=== PATIENT | female | born 1935 | race Hispanic/Latino ===

== ENCOUNTER 2018-09-30 11:40 | Emergency (ER) | payer OTHER ==
--- OUTSIDE RECORDS SUMMARY | 2018-09-30 11:45 | XMS REPORT | Clinical Summary ---
:1935 Author Organization [facility] Address [address] [place] [address] Care Team Providers Name Role Phone Unavailable Primary Care Provider Unavailable Allergies Not on File Medications Not on file Active Problems Not on file Encounters Date Type Specialty Care Team Description 09/12/2018 Outside Orders Central Scheduling Link, Osiel Renal mass, left MD Apollo (Primary Dx) after 09/29/2017 Social History Tobacco Use Types Packs/Day Years Used Date Never Assessed Sex Assigned at Date Recorded Not on file Job Start Date Occupation Industry Not on file Not on file Not on file Travel History Travel Start Travel End No recent travel history available. Last Filed Vital Signs Not on file Plan of Treatment Not on file Results Not on fileafter 09/29/2017 Insurance Payer Benefit Plan / Subscriber ID Type Phone Address Group [employer]ET[employer] - MEDICARE AETNA MEDICARE HMO xxxxxxxx [phone] [address] [place] [id number]
[2018-09-30] MEDS ORDERED: ACETAMINOPHEN 325 MG TABLET ONE (12:21)
--- NOTE | 2018-09-30 13:10 | RAD REPORT ---
EXAM DESCRIPTION: Shoulder Right 2 View - 09/30/2018 12:58 pm CLINICAL HISTORY: Fall, arm and shoulder pain COMPARISON: July 2018 TECHNIQUE: Internal and external rotation views of the right shoulder were obtained. FINDINGS: There is no fracture or dislocation. AC joint degenerative changes are present. A partial ly mineralized thickened capsule along the superior margin. Acromiohumeral joint space is narrowed wh ich can be indirect evidence of chronic rotator cuff tear. No abnormal soft tissue calcification. No new scapula finding. No new rib or parenchymal finding of the upper chest. IMPRESSION: No fracture, dislocation or acute right shoulder finding. Narrowed acromiohumeral joint space can be indirect evidence for chronic rotator cuff tear.
--- NOTE | 2018-09-30 13:11 | RAD REPORT ---
EXAM DESCRIPTION: RAD - Humerus Right - 09/30/2018 12:53 pm CLINICAL HISTORY: Fall, right arm pain COMPARISON: Right shoulder same date FINDINGS: No fracture is identified. There is no dislocation or periosteal reaction noted. AC joint degenerative changes are present separately detailed and right shoulder examination. No new scapula f inding. Elbow joint as imaged is unremarkable. No suspicious soft tissue finding. IMPRESSION: No fracture, dislocation or acute right humerus finding.
--- NOTE | 2018-09-30 13:26 | EDPHYS ---
Physician Documentation [facility] Name: Twyla Gray Age: 83 yrs Sex: Female : 1935 Arrival Date: 09/30/2018 Time: 11:41 Bed 19 Private MD: Jonnie Grover ED Physician Isaac Diez HPI: 09/30 12:04 This 83 yrs old Female presents to ER via Ambulatory with complaints of Fall jmm Injury. 12:04 Details of fall: The patient fell from an upright position. Onset: The symptoms/episode jmm began/occurred acutely. This is an 83 year old female with a history of breast cancer, htn, that presents to the ED with complaints of right arm pain after slipping off her walker. patient denies head injury, denies neck pain, denies chest pain, denies shortness of breath. . Historical: - Allergies: 11:51 Sulfa (Sulfonamide Antibiotics); hj - Home Meds: 11:51 omeprazole 40 mg Oral cpDR 1 cap once daily [Active]; alprazolam 0.5 mg Oral Tb24 1 tab hj once daily [Active]; ramipril 2.5 mg Oral cap 1 cap once daily [Active]; aspirin 81 mg Oral chew 1 tab once daily [Active]; meclizine 25 mg Oral chew 1 tab as needed [Active]; alendronate oral oral once wkly [Active]; - PMHx: 11:51 breast cancer; Hypertension; hj - PSHx: 11:51 Mastectomy, Left; hj - Immunization history:: Adult Immunizations up to date. - Social history:: Smoking status: Patient/guardian denies using tobacco, Patient/guardian denies using alcohol. - Ebola Screening: : Patient negative for fever greater than or equal to 101.5 degrees Fahrenheit, and additional compatible Ebola Virus Disease symptoms Patient denies exposure to infectious person Patient denies travel to an Ebola-affected area in the 21 days before illness onset. ROS: 12:04 Constitutional: Negative for fever, chills, and weight loss, Cardiovascular: Negative jmm for chest pain, palpitations, and edema, Respiratory: Negative for shortness of breath, cough, wheezing, and pleuritic chest pain. 12:04 MS/extremity: Positive for pain. 12:04 All other systems are negative. Exam: 12:04 Constitutional: This is a well developed, well nourished patient who is awake, alert, jmm and in no acute distress. Head/Face: atraumatic. Eyes: EOMI, no conjunctival erythema appreciated ENT: Moist Mucus Membranes Neck: Trachea midline, Supple Chest/axilla: Normal chest wall appearance and motion. Cardiovascular: Regular rate and rhythm. No edema appreciated Respiratory: Normal respirations, no respiratory distress appreciated Abdomen/GI: Non distended, soft Back: Normal ROM Skin: General appearance color normal 12:04 Musculoskeletal/extremity: right mid humeral pain on palpation, compartments are soft, full radial pulse, full feeder associate strength, mild right posterior shoulder pain on palpation, pain is elicited on abduction. NVI. 12:04 Skin: Appearance: Color: normal in color. 12:04 Neuro: Orientation: is normal, Mentation: is normal, Memory: is normal. 12:04 Psych: Behavior/mood is pleasant, cooperative. Vital Signs: 11:52 BP 155 / 81; Pulse 71; Resp 18; Temp 97.4; Pulse Ox 95% on R/A; Weight 64.86 kg; Height 5 ft. 1 in. (154.94 cm); Pain 4/10; 11:52 Body Mass Index 27.02 (64.86 kg, 154.94 cm) MDM: 12:04 Patient medically screened. [facility] 13:25 Data reviewed: vital signs, nurses notes. Counseling: I had a detailed discussion with [facility] the patient and/or guardian regarding: the historical points, exam findings, and any diagnostic results supporting the discharge/admit diagnosis, radiology results, the need for outpatient follow up, to return to the emergency department if symptoms worsen or persist or if there are any questions or concerns that arise at home. 13:25 ED course: Patient is given follow up with orthopedics. Symptoms appear to be due to [facility] soft tissue injury. . 09/30 12:07 Order name: Shoulder Right (2 View) XRAY; Complete Time: 13:16 [facility] 09/30 12:07 Order name: Humerus Right XRAY; Complete Time: 13:16 [facility] 09/30 13:16 Order name: Sling; Complete Time: 13:36 [facility] Administered Medications: 12:12 Drug: Tylenol 650 mg Route: PO; em 13:22 Follow up: Response: No adverse reaction; Pain is decreased em Disposition: 14:27 Co-signature as Attending Physician, Isaac Diez MD I agree with the assessment and kdr plan of care. Disposition: 09/30/18 13:25 Discharged to Home. Impression: Sprain of shoulder joint. - Condition is Stable. - Discharge Instructions: Shoulder Sprain. - Medication Reconciliation Form, Thank You Letter, Antibiotic Education, Prescription Opioid Use form. - Follow up: Milan Nicholas MD; When: 2 - 3 days; Reason: Recheck today's complaints, Continuance of care, Re-evaluation by your physician. Signatures: Dispatcher [employer] EDMS Isaac Diez MD MD kdr Mickail, Joel, PA PA samantham Don Warner, UTILITY AGENT UTILITY AGENT em David Rizo RN RN hj Corrections: (The following items were deleted from the chart) 13:43 13:25 09/30/2018 13:25 Discharged to Home. Impression: Sprain of shoulder joint. em Condition is Stable. Forms are Medication Reconciliation Form, Thank You Letter, Antibiotic Education, Prescription Opioid Use. Follow up: Milan Nicholas; When: 2 - 3 days; Reason: Recheck today's complaints, Continuance of care, Re-evaluation by your physician. richard
--- NOTE | 2018-09-30 13:26 | ER ---
[facility]'s [facility] Name: Twyla Gray Age: 83 yrs Sex: Female : 1935 Arrival Date: 09/30/2018 Time: 11:41 Bed 19 Private MD: Jonnie Grover Diagnosis: Sprain of shoulder joint Presentation: 09/30 11:48 Presenting complaint: Patient states: i fell from a standing position using a walker hj and hurt my arms; denies hitting head or LOC;. Transition of care: patient was not received from another setting of care. Onset of symptoms was September 30, 2018. Risk Assessment: Do you want to hurt yourself or someone else? Patient reports no desire to harm self or others. Initial Sepsis Screen: Does the patient meet any 2 criteria? No. Patient's initial sepsis screen is negative. Does the patient have a suspected source of infection? No. Patient's initial sepsis screen is negative. Care prior to arrival: None. 11:48 Method Of Arrival: Ambulatory 11:48 Acuity: ASHLYN 4 hj Triage Assessment: 11:53 General: Appears in no apparent distress. uncomfortable, Behavior is calm, cooperative, hj appropriate for age. Pain: Complains of pain in arms. Historical: - Allergies: 11:51 Sulfa (Sulfonamide Antibiotics); hj - Home Meds: 11:51 omeprazole 40 mg Oral cpDR 1 cap once daily [Active]; alprazolam 0.5 mg Oral Tb24 1 tab hj once daily [Active]; ramipril 2.5 mg Oral cap 1 cap once daily [Active]; aspirin 81 mg Oral chew 1 tab once daily [Active]; meclizine 25 mg Oral chew 1 tab as needed [Active]; alendronate oral oral once wkly [Active]; - PMHx: 11:51 breast cancer; Hypertension; hj - PSHx: 11:51 Mastectomy, Left; hj - Immunization history:: Adult Immunizations up to date. - Social history:: Smoking status: Patient/guardian denies using tobacco, Patient/guardian denies using alcohol. - Ebola Screening: : Patient negative for fever greater than or equal to 101.5 degrees Fahrenheit, and additional compatible Ebola Virus Disease symptoms Patient denies exposure to infectious person Patient denies travel to an Ebola-affected area in the 21 days before illness onset. Screenin:52 Abuse screen: Denies threats or abuse. Denies injuries from another. Nutritional hj screening: No deficits noted. Tuberculosis screening: No symptoms or risk factors identified. Fall Risk None identified. Assessment: 12:10 General: Appears in no apparent distress. comfortable, Behavior is calm, cooperative. em Pain: Complains of pain in anterior aspect of right shoulder Pain currently is 4 out of 10 on a pain scale. Neuro: Level of Consciousness is awake, alert, obeys commands, Oriented to person, place, time, situation. Cardiovascular: Capillary refill < 3 seconds Patient's skin is warm and dry. Respiratory: Airway is patent Respiratory effort is even, unlabored, Respiratory pattern is regular, symmetrical. GI: Abdomen is flat. Derm: Skin is intact, is healthy with good turgor, Skin is pink, warm \T\ dry. Musculoskeletal: Circulation, motion, and sensation intact. Capillary refill < 3 seconds, Range of motion: limited in right shoulder Swelling absent. 12:20 Reassessment: I agree with previous assessment. hb 13:00 Reassessment: Patient appears in no apparent distress at this time. Patient and/or em family updated on plan of care and expected duration. Pain level reassessed. Patient is alert, oriented x 3, equal unlabored respirations, skin warm/dry/pink. Vital Signs: 11:52 BP 155 / 81; Pulse 71; Resp 18; Temp 97.4; Pulse Ox 95% on R/A; Weight 64.86 kg; Height hj 5 ft. 1 in. (154.94 cm); Pain 4/10; 11:52 Body Mass Index 27.02 (64.86 kg, 154.94 cm) ED Course: 11:41 Patient arrived in ED. rg4 11:42 Jonnie Grover MD is Private Physician. rg4 11:50 Triage completed. hj 11:53 Arm band placed on right wrist. hj 11:53 Patient has correct armband on for positive identification. Bed in low position. Call light in reach. Side rails up X 1. Adult w/ patient. 11:55 Don Warner LVN is Primary Nurse. em 11:59 Bharat Salas PA is PHCP. [facility] 11:59 Isaac Diez MD is Attending Physician. jmm 12:45 X-ray completed. Portable x-ray completed in exam room. Patient tolerated procedure jb2 well. 12:48 Shoulder Right (2 View) XRAY In Process Unspecified. EDMS 12:48 Humerus Right XRAY In Process Unspecified. EDMS 13:25 Milan Nicholas MD is Referral Physician. jmm 13:42 Thermoregulation: warm blanket given to patient. em 13:42 No provider procedures requiring assistance completed. Patient did not have IV access em during this emergency room visit. Administered Medications: 12:12 Drug: Tylenol 650 mg Route: PO; em 13:22 Follow up: Response: No adverse reaction; Pain is decreased em Outcome: 13:25 Discharge ordered by . jmm 13:42 Discharged to home via wheelchair, with family. em 13:42 Condition: good 13:42 Discharge instructions given to patient, family, Instructed on discharge instructions, follow up and referral plans. Demonstrated understanding of instructions, follow-up care. 13:43 Patient left the ED. em Signatures: Dispatcher [employer] EDNY Bharat Salas PA PA Trip Gallardo jb2 Don Warner, OPHTHALMOLOGIST OPHTHALMOLOGIST em David Rizo, RN RN Yuliet Davis, HUSSAIN RN Shawna Estrella rg4
== END 2018-09-30 13:43 | disposition home or self-care (01) ==
LOC: ER 11:40
DX: S43.401A Unspecified sprain of right shoulder joint, initial encounter (principal); W01.0XXA Fall on same level from slipping, tripping and stumbling without subsequent striking against object, initial encounter; C50.919 Malignant neoplasm of unspecified site of unspecified female breast; I10 Essential (primary) hypertension; Z88.2 Allergy status to sulfonamides; Z90.12 Acquired absence of left breast and nipple; Z79.82 Long term (current) use of aspirin
CPT/HCPCS: 99283

== ENCOUNTER 2022-08-07 09:15 | Emergency (ER) | payer OTHER ==
--- OUTSIDE RECORDS SUMMARY | 2022-08-07 09:35 | XMS REPORT | Continuity of Care Document ---
:1935 Author Organization [facility] t Address 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 shoulder, Medical initial Center encounter Allergies, Adverse Reactions, Alerts This patient has no known allergies or adverse reactions. Social History Social Habit Start Date Stop Date Quantity Comments Source History of Tobacco [facility] - Use [facility] Sex Assigned At [birth year] [facility] 00:00:00 00:00:00 [facility] Center Smoking Status Start Date Stop Date Source Never Smoker [facility] Medications Ordered Filled Start Stop Current Ordering Indication Dosage Frequency Signature Comments Components Source Medication Medication Date Date Medication? Clinician (SIG) Name Name Pantoprazol Pantoprazol No Pantoprazo e Sodium e Sodium le Sodium Omeprazole Omeprazole No Omeprazole 40 MG 40 MG 40 MG Ramipril Ramipril No Ramipril 2.5 MG 2.5 MG 2.5 MG Aspirin 81 Aspirin 81 No 1{table QD Aspirin 81 MG MG t} MG Meclizine Meclizine No Meclizine HCl 25 MG HCl 25 MG HCl 25 MG Dorzolamide Dorzolamide No Dorzolamid HCl-Timolol HCl-Timolol e Mal Mal HCl-Timolo 22.3-6.8 22.3-6.8 l Mal MG/ML MG/ML 22.3-6.8 MG/ML ALPRAZolam ALPRAZolam No ALPRAZolam 0.25 MG 0.25 MG 0.25 MG Alphagan P Alphagan P No Alphagan P 0.1 % 0.1 % 0.1 % Lumigan Lumigan No Lumigan 0.01 % 0.01 % 0.01 % ALPRAZolam ALPRAZolam No ALPRAZolam 0.25 MG 0.25 MG 0.25 MG Meclizine Meclizine No Meclizine HCl 25 MG HCl 25 MG HCl 25 MG Ramipril Ramipril No Ramipril 2.5 MG 2.5 MG 2.5 MG Lumigan Lumigan No Lumigan 0.01 % 0.01 % 0.01 % Alphagan P Alphagan P No Alphagan P 0.1 % 0.1 % 0.1 % Aspirin 81 Aspirin 81 No 1{table QD Aspirin 81 MG MG t} MG Omeprazole Omeprazole No Omeprazole 40 MG 40 MG 40 MG Pantoprazol Pantoprazol No Pantoprazo e Sodium e Sodium le Sodium Dorzolamide Dorzolamide No Dorzolamid HCl-Timolol HCl-Timolol e Mal Mal HCl-Timolo 22.3-6.8 22.3-6.8 l Mal MG/ML MG/ML 22.3-6.8 MG/ML ALPRAZolam ALPRAZolam No ALPRAZolam 0.25 MG 0.25 MG 0.25 MG Meclizine Meclizine No Meclizine HCl 25 MG HCl 25 MG HCl 25 MG Ramipril Ramipril No Ramipril 2.5 MG 2.5 MG 2.5 MG Lumigan Lumigan No Lumigan 0.01 % 0.01 % 0.01 % Alphagan P Alphagan P No Alphagan P 0.1 % 0.1 % 0.1 % Aspirin 81 Aspirin 81 No 1{table QD Aspirin 81 MG MG t} MG Omeprazole Omeprazole No Omeprazole 40 MG 40 MG 40 MG Pantoprazol Pantoprazol No Pantoprazo e Sodium e Sodium le Sodium Dorzolamide Dorzolamide No Dorzolamid HCl-Timolol HCl-Timolol e Mal Mal HCl-Timolo 22.3-6.8 22.3-6.8 l Mal MG/ML MG/ML 22.3-6.8 MG/ML ALPRAZolam ALPRAZolam No ALPRAZolam 0.25 MG 0.25 MG 0.25 MG Meclizine Meclizine No Meclizine HCl 25 MG HCl 25 MG HCl 25 MG Ramipril Ramipril No Ramipril 2.5 MG 2.5 MG 2.5 MG Lumigan Lumigan No Lumigan 0.01 % 0.01 % 0.01 % Alphagan P Alphagan P No Alphagan P 0.1 % 0.1 % 0.1 % Aspirin 81 Aspirin 81 No 1{table QD Aspirin 81 MG MG t} MG Omeprazole Omeprazole No Omeprazole 40 MG 40 MG 40 MG Pantoprazol Pantoprazol No Pantoprazo e Sodium e Sodium le Sodium Dorzolamide Dorzolamide No Dorzolamid HCl-Timolol HCl-Timolol e Mal Mal HCl-Timolo 22.3-6.8 22.3-6.8 l Mal MG/ML MG/ML 22.3-6.8 MG/ML Vital Signs Vital Name Observation Time Observation Value Comments Source height 2022-05-05 09:30:00 59.5 [in_i] [facility] weight 2022-05-05 09:30:00 153 [lb_av] [facility] temperature 2022-05-05 09:30:00 97.0 [degF] [facility] bmi 2022-05-05 09:30:00 30.38 kg/m2 [facility] blood pressure 2022-05-05 09:30:00 126 mm[Hg] [facility] - systolic [facility] blood pressure 2022-05-05 09:30:00 78 mm[Hg] [facility] - diastolic [facility] height 2021-07-03 09:00:00 59.5 [in_i] [facility] weight 2021-07-03 09:00:00 153 [lb_av] [facility] bmi 2021-07-03 09:00:00 30.38 kg/m2 [facility] - [facility] blood pressure 2021-07-03 09:00:00 132 mm[Hg] [facility] - systolic [facility] blood pressure 2021-07-03 09:00:00 84 mm[Hg] Common [facility] - diastolic [facility] Procedures This patient has no known procedures. Encounters Start End Encounter Admission Attending Care Care Encounter Source Date/Time Date/Time Type Type Clinicians Facility Department ID 2022-04-21 Outpatient [facility], STLMLC STLMLC [id number] Common 09:23:[address] [facility] 2022-01-13 Outpatient [facility], STLMLC STLMLC [id number] Common 09:42:[address] [facility] 2021-07-23 Outpatient [facility], STLMLC STLMLC [id number] Common 14:30:[address] [facility] 2021-07-23 Outpatient [facility], STLMLC STLMLC [id number] Common 14:18:[id number] [facility] 2022-07-09 2022-07-09 (TEL) STLMLC STLMLC [id number] Co [facility]mon 00:00:00 00:00:00 [facility] 2022-07-02 2022-07-02 (TEL) STLMLC STLMLC [id number] Co mmon 00:00:00 00:00:00 [facility] 2022-05-05 2022-05-05 OFFICE STLMLC STLMLC [id number] Co mmon 00:00:00 00:00:00 VISIT [facility] PT - [address] 2021-07-03 2021-07-03 OFFICE [facility] [id number] Co mmon 00:00:00 00:00:00 VISIT Danis BROWN PT - [address] Results This patient has no known results.
[2022-08-07 10:30] LABS: Absolute Lymphocytes (CBC) 0.8 K/uL (0.7-4.9); Hematocrit 32.1 % (36.0-45.0); Lymphocytes % 20.1 % (15.3-44.8); MCV 90.6 fL (80-100); MPV 8.5 fL (7.6-11.3); RBC Red Blood Cell Count 3.54 M/uL (3.86-4.86)
[2022-08-07 10:47] LABS: Bilirubin Total 0.4 mg/dL (0.2-1.0); Magnesium 2.1 mg/dL (1.6-2.4); Potassium 3.6 mmol/L (3.5-5.1); Protein, Total 7.6 g/dL (6.4-8.2)
--- NOTE | 2022-08-07 11:00 | EDPHYS ---
Physician Documentation [facility] Name: Twyla Gray Age: 87 yrs Sex: Female : 1935 Arrival Date: 08/07/2022 Time: 09:16 Bed 20 Private MD: ED Physician Mike Wyatt HPI: 08/07 09:59 This 87 yrs old Female presents to ER via Ambulatory with complaints of rt Numbness Of Arm, Numbless Of Leg. 09:59 Patient presents to the ED with a tingling sensation for the past several weeks to rt month. Patient has been seen by her physician, outpatient imaging has been ordered. She denies any focal weakness. The tingling is mostly localized to the left superior trapezius region, however, she reports that she has had previously tingling involving the arm. The patient reports tingling behind both of her knees, not unilateral. Reports feeling somewhat weak generally but denies any weakness to the arms or legs. The patient's daughter states that she noticed no facial droop. The daughter states that she is concerned that the patient's symptoms may be caused from anxiety. Denies other acute complaints at this time. Symptoms are moderate in severity, no other aggravating or alleviating factors.. Historical: - Allergies: 09:33 Sulfa (Sulfonamide Antibiotics); iw - PMHx: 09:33 breast cancer; Hypertension; iw - PSHx: 09:33 hysterectomy; Cholecystectomy; left mastectomy; iw - Immunization history:: Adult Immunizations unknown. - Social history:: Smoking status: Patient denies any tobacco usage or history of. ROS: 10:00 Constitutional: Negative for fever, chills, and weight loss, Cardiovascular: Negative rt for chest pain, palpitations, and edema, Respiratory: Negative for shortness of breath, cough, wheezing, and pleuritic chest pain, Abdomen/GI: Negative for abdominal pain, nausea, vomiting, diarrhea, and constipation, Back: Negative for injury and pain, MS/Extremity: Negative for injury and deformity, Skin: Negative for injury, rash, and discoloration. 10:00 Neuro: Positive for tingling, Negative for weakness. Exam: 10:00 Constitutional: This is a well developed, well nourished patient who is awake, alert, rt and in no acute distress. Head/Face: Normocephalic, atraumatic. Chest/axilla: Normal chest wall appearance and motion. Nontender with no deformity. No lesions are appreciated. Cardiovascular: Regular rate and rhythm with a normal S1 and S2. No gallops, murmurs, or rubs. Normal PMI, no JVD. No pulse deficits. Respiratory: Lungs have equal breath sounds bilaterally, clear to auscultation and percussion. No rales, rhonchi or wheezes noted. No increased work of breathing, no retractions or nasal flaring. Abdomen/GI: Soft, non-tender, with normal bowel sounds. No distension or tympany. No guarding or rebound. No evidence of tenderness throughout. Skin: Warm, dry with normal turgor. Normal color with no rashes, no lesions, and no evidence of cellulitis. MS/ Extremity: Pulses equal, no cyanosis. Neurovascular intact. Full, normal range of motion. 10:00 Neuro: Speech normal, no facial droop, cranial nerves II through XII intact, strength and sensation intact in upper and lower extremities. No ataxia on [id number].. 10:14 ECG was reviewed by the Attending Physician. rt Vital Signs: 09:31 BP 158 / 64; Pulse 87; Resp 16; Temp 98.8; Pulse Ox 96% on R/A; iw 10:20 BP 116 / 32; Pulse 67; Resp 18; Pulse Ox 96% on R/A; db 11:00 BP 129 / 50; Pulse 64; Resp 18; Pulse Ox 95% on R/A; db MDM: 09:36 Patient medically screened. rt 11:21 Differential diagnosis: Paresthesia, disc disease, CVA, TIA. Data reviewed: vital rt signs, nurses notes, old medical records, lab test result(s), EKG, radiologic studies. Test considered but Not performed: CT: Patient has no focal neurologic deficits, timeframe is not consistent with an acute CVA, CT scan of the head is not indicated.. Historians other than the Patient: Daughter/Son: . External Records Reviewed: Outpatient labs: Anemia is chronic and at baseline. Care significantly affected by the following chronic conditions: Hypertension. Counseling: I had a detailed discussion with the patient and/or guardian regarding: the historical points, exam findings, and any diagnostic results supporting the discharge/admit diagnosis, lab results, the need for outpatient follow up. 02/10 09:55 Order name: CBC with Diff; Complete Time: 11:05 rt 08/07 09:55 Order name: CMP; Complete Time: 10:53 rt 08/07 09:55 Order name: Magnesium; Complete Time: 10:53 rt 08/07 09:55 Order name: EKG; Complete Time: 09:56 rt 08/07 09:55 Order name: EKG - Nurse/Tech; Complete Time: 10:00 rt 08/07 11:04 Order name: Manual Differential; Complete Time: 11:05 EDMS EC:14 Rate is 69 beats/min. Rhythm is regular, Normal Sinus Rhythm with No ectopy, LVH. QRS rt [place] is Normal. RI interval is normal. QRS interval is normal. QT interval is normal. No Q waves. T waves are Normal. No ST changes noted. Administered Medications: No medications were administered Disposition Summary: 08/07/22 10:59 Discharge Ordered Location: Home rt Problem: an ongoing problem rt Symptoms: are unchanged rt Condition: Stable rt Diagnosis - Paresthesia of skin rt Followup: rt - With: Private Physician - When: 2 - 3 days - Reason: Discharge Instructions: - Discharge Summary Sheet rt - Paresthesia rt Forms: - Medication Reconciliation Form rt - Thank You Letter rt - Antibiotic Education rt - Prescription Opioid Use rt Signatures: Dispatcher [employer] Chyna Tavares, Gloria Riddle RN, RN RN db [place], Ryan, MD MD rt
--- NOTE | 2022-08-07 11:00 | ER ---
Nurse's Notes [facility] Name: Twyla Gray Age: 87 yrs Sex: Female : 1935 Arrival Date: 08/07/2022 Time: 09:16 Bed 20 Private MD: Diagnosis: Paresthesia of skin Presentation: 08/07 09:31 Chief complaint: Patient states: both legs have been numb/tingly and up in my left iw neck/shoulder area feels the same way , it has been off and on since yesterday evening around 7:30. Coronavirus screen: At this time, the client does not indicate any symptoms associated with coronavirus-19. Ebola Screen: Patient negative for fever greater than or equal to 101.5 degrees Fahrenheit, and additional compatible Ebola Virus Disease symptoms Patient denies exposure to infectious person. Patient denies travel to an Ebola-affected area in the 21 days before illness onset. No symptoms or risks identified at this time. Initial Sepsis Screen: Does the patient meet any 2 criteria? No. Patient's initial sepsis screen is negative. Does the patient have a suspected source of infection? No. Patient's initial sepsis screen is negative. Risk Assessment: Do you want to hurt yourself or someone else? Patient reports no desire to harm self or others. Onset of symptoms was August 06, 2022. 09:31 Method Of Arrival: Ambulatory iw 09:31 Acuity: ASHLYN 3 iw Historical: - Allergies: 09:33 Sulfa (Sulfonamide Antibiotics); iw - PMHx: 09:33 breast cancer; Hypertension; iw - PSHx: 09:33 hysterectomy; Cholecystectomy; left mastectomy; iw - Immunization history:: Adult Immunizations unknown. - Social history:: Smoking status: Patient denies any tobacco usage or history of. Screenin:28 [facility] ED Fall Risk Assessment (Adult) History of falling in the last 3 months, db including since admission No falls in past 3 months (0 pts) Confusion or Disorientation No (0 pts) Intoxicated or Sedated No (0 pts) Impaired Gait No (0 pts) Mobility Assist Device Used Yes (1 pt) Altered Elimination No (0 pt) Score/Fall Risk Level 0 - 2 = Low Risk Oriented to surroundings, Maintained a safe environment. Abuse screen: Denies threats or abuse. Denies injuries from another. Nutritional screening: No deficits noted. Tuberculosis screening: No symptoms or risk factors identified. Assessment: 10:28 Reassessment: Patient appears in no apparent distress at this time. Patient is alert, db oriented x 3, equal unlabored respirations, skin warm/dry/pink. states had tingling in arms and legs with pressure that started a week ago and then came back yesterday. Patient denies pain at this time. Family at bedside. General: Appears in no apparent distress. comfortable, Behavior is calm, cooperative. Pain: Denies pain. Neuro: Level of Consciousness is awake, alert, obeys commands, Oriented to person, place, time, situation. Cardiovascular: Reports pressure and numbness since yesterday. Respiratory: Airway is patent Respiratory effort is even, unlabored, Respiratory pattern is regular, symmetrical. GI: No deficits noted. No signs and/or symptoms were reported involving the gastrointestinal system. : No deficits noted. No signs and/or symptoms were reported regarding the genitourinary system. 11:30 Reassessment: Patient appears in no apparent distress at this time. Patient and/or db family updated on plan of care and expected duration. Pain level reassessed. Patient is alert, oriented x 3, equal unlabored respirations, skin warm/dry/pink. Vital Signs: 09:31 BP 158 / 64; Pulse 87; Resp 16; Temp 98.8; Pulse Ox 96% on R/A; iw 10:20 BP 116 / 32; Pulse 67; Resp 18; Pulse Ox 96% on R/A; db 11:00 BP 129 / 50; Pulse 64; Resp 18; Pulse Ox 95% on R/A; db Vitals: 10:20 Cardiac Rhythm Assessment Regular Sinus rhythm. db ED Course: 09:16 Patient arrived in ED. rg4 09:17 Mike Wyatt MD is Attending Physician. rt 09:33 Triage completed. iw 09:33 Arm band placed on. iw 10:20 Gloria Brown, RN is Primary Nurse. db 10:24 Magnesium Sent. mm9 10:24 CMP Sent. mm9 10:24 CBC with Diff Sent. mm9 10:24 Initial lab(s) drawn, by me, sent to lab. EKG done, by ED staff, reviewed by Mike Wyatt MD. Inserted saline lock: 22 gauge in right antecubital area, using aseptic technique. Blood collected. 10:25 Patient has correct armband on for positive identification. Placed in gown. Bed in low mm9 position. Call light in reach. Side rails up X 1. Adult w/ patient. Warm blanket given. Client placed on continuous cardiac and pulse oximetry monitoring. NIBP monitoring applied. night monitor on. Pulse ox on. NIBP on. 11:50 No provider procedures requiring assistance completed. IV discontinued, intact, db bleeding controlled, No redness/swelling at site. Administered Medications: No medications were administered Medication: 10:28 VIS not applicable for this client. db Outcome: 10:59 Discharge ordered by . rt 11:50 Discharged to home ambulatory. db 11:50 Condition: stable 11:50 Discharge instructions given to patient, Instructed on discharge instructions, Demonstrated understanding of instructions. 12:10 Patient left the ED. db Signatures: Chyna Pickett, Shawna Ramesh RN rg4 Gloria Brown RN RN db Martinez, Maria mm9 Mike Wyatt MD MD rt
[2022-08-07 11:04] LABS: Blood Morphology Comment NOT SEEN (NOT SEEN); Platelet Estimate ADEQ
[2022-08-07 12:41] VITALS: TEMP 98.8
[2022-08-07 12:43] VITALS: BP 129/50; O2SAT 95
== END 2022-08-07 12:10 | disposition home or self-care (01) ==
LOC: ER 09:15
DX: R20.2 Paresthesia of skin (principal); I10 Essential (primary) hypertension; Z88.2 Allergy status to sulfonamides; Z85.3 Personal history of malignant neoplasm of breast
CPT/HCPCS: 36415; 80053; 83735; 85025; 99284

== ENCOUNTER 2024-07-02 01:18 | Inpatient (IN) | payer OTHER ==
[2024-07-02 01:47] LABS: Absolute Lymphocytes (CBC) 1.6 K/uL (0.7-4.9); Absolute Monocytes 2.8 K/uL (0.1-1.3); Absolute Neutrophil 6.4 K/uL (1.8-8.0); Basophils % 0.5 % (0-1.3); Eosinophils % 0.1 % (0-4.4); Hematocrit 27.9 % (36.0-45.0); Hemoglobin 9.4 g/dL (12.0-15.0); Lymphocytes % 14.5 % (15.3-44.8); MCH 30.5 pg (27.0-35.0); MCHC 33.6 g/dL (32.0-36.0); MCV 90.9 fL (80-100); MPV 8.8 fL (7.6-11.3); Neutrophils % 58.9 % (41.7-73.7); Nucleated Red Blood Cells % 0.1 % (0-0); Platelets 202 thou/uL (152-406); RBC Red Blood Cell Count 3.06 M/uL (3.86-4.86); Red Cell Distribution Width 15.8 % (12.1-15.2)
[2024-07-02 02:14] LABS: Albumin 3.5 g/dL (3.4-5.0); Albumin/Globulin Ratio 0.9 (1.1-1.8); Anion Gap 13.7 mEq/L (5.0-15.0); Bilirubin Total 0.7 mg/dL (0.2-1.0); Globulin 3.8 g/dL (2.3-3.5); Potassium 2.7 mEq/L (3.5-5.1); Protein, Total 7.3 g/dL (6.4-8.2)
[2024-07-02] MEDS ORDERED: POTASSIUM 25 MEQ EFFERV TAB ONE (03:09)
[2024-07-02 03:28] LABS: Troponin High Sensitivity 37.1 pg/mL (<58.9)
[2024-07-02] MEDS ORDERED: KCL 20 MEQ/100 mL IVPB 100 ML IV ONE (03:30)
[2024-07-02] MEDS ORDERED: NA CHLORIDE 0.9% 500 ML ONE (03:30)
--- NOTE | 2024-07-02 06:12 | RAD REPORT ---
EXAM: CT Chest, Abdomen and Pelvis With Intravenous Contrast CLINICAL HISTORY: The patient is 89 years old and is Female; Gen weakness. TECHNIQUE: Axial computed tomography images of the chest, abdomen and pelvis with intravenous contr ast. Sagittal and coronal reformatted images were created and reviewed. This CT exam was performed using one or more of the following dose reduction techniques: automated exposure control, adjustment of the mA and/or kV according to patient size, and/or use of iterative reconstruction technique. COMPARISON: CT Abdomen 11/23/[address] Pelvis 09/16/2020 - report only. FINDINGS: CHEST: Lungs: Unremarkable. No mass. No consolidation or ground glass opacities. Pleural space: Unremarkable. No significant effusion. No pneumothorax. Heart: Unremarkable. No cardiomegaly. No significant pericardial effusion. No significant c oronary artery calcifications. ABDOMEN: Liver: Unremarkable. No mass. Gallbladder and bile ducts: Cholecystectomy without choledocholithiasis. No ductal dilation. Pancreas: No findings to suggest acute pancreatitis. No mass visualized. No ductal dilation. Spleen: Unremarkable. No splenomegaly. Adrenals: Unremarkable. No mass. Kidneys and ureters: Unremarkable. No hydronephrosis. No solid mass. Stomach and bowel: There are a few mildly dilated small bowel loops with air-fluid levels suggest ing ileus. No bowel wall thickening or pneumatosis. No colon wall thickening or pericolonic inflammation. Air-fluid level in the stomach. No definite gastric wall thickening. PELVIS: Appendix: No findings to suggest acute appendicitis. Bladder: Unremarkable. No mass. Reproductive: Hysterectomy. No adnexal mass. CHEST, ABDOMEN and PELVIS: Intraperitoneal space: Unremarkable. No significant fluid collection. No free air. Bones/joints: Scoliosis. 5 to 6 mm anterolisthesis L4 on L5 with moderate to marked right foramin al narrowing. No acute fracture visualized. Right total hip arthroplasty hardware. No dislocation. Multilevel degenerative changes in the spine. Soft tissues: Left mastectomy. Right lower quadrant abdominal wall hernia containing fat and a short segment of distal ileum . Vasculature: Unremarkable. No aortic aneurysm. Lymph nodes: Unremarkable. No enlarged lymph nodes. IMPRESSION: 1. No acute cardiopulmonary findings. 2. Small bowel ileus favored over early partial small bowel obstruction. 3. Left mastectomy. 4. Cholecystectomy without choledocholithiasis. 5. Right lower quadrant abdominal wall hernia containing fat and a short segment of distal ileum. 6. Scoliosis. 5 to 6 mm anterolisthesis L4 on L5 with moderate to marked right foraminal narrowing. Multilevel degenerative changes. 7. Additional non-emergent findings as above. Electronically signed by: Shannan Rocha MD 07/02/2024 06:08 AM [facility] [place] Due to temporary technical issues with the PACS/[employer] reporting system, reports are being mami d by the in-house radiologist without review as a courtesy to ensure prompt reporting the interpreting radiologist is fully responsible for the content of the report. Transcribed Date/Time: 07/02/2024 6:11 AM
--- NOTE | 2024-07-02 06:23 | EDPHYS ---
Physician Documentation [facility] Name: Twyla Gray Age: 89 yrs Sex: Female : 1935 Arrival Date: 07/02/2024 Time: 01:18 Bed 19 Private MD: ED Physician Salvador James HPI: 07/02 06:21 This 89 yrs old Female presents to ER via EMS with complaints of Abnormal Lab sp4 Results. 06:22 [facility] with report of low potassium measured at 2.7. sp4 Patient has no specific complaints. Family reports worsening generalized weakness. Historical: - Allergies: 01:35 Sulfa (Sulfonamide Antibiotics); cp4 - PMHx: :35 breast cancer; Hypertension; cp4 - PSHx: 01:35 Cholecystectomy; hysterectomy; Left Mastectomy; cp4 - Immunization history:: Adult Immunizations up to date. - Infectious Disease History:: Denies. - Social history:: Smoking status: Patient denies any tobacco usage or history of. - Family history:: not pertinent. ROS: 06:22 Constitutional: Negative for fever, chills, and weight loss, positive generalized sp4 weakness positive for low potassium 06:22 All other systems are negative, Exam: 06:22 Constitutional: This is a well developed, well nourished patient who is awake, alert, sp4 and in no acute distress. Head/Face: Normocephalic, atraumatic. Eyes: Pupils equal round and reactive to light, extra-ocular motions intact. Lids and lashes normal. Conjunctiva and sclera are not injected. Cornea within normal limits. Periorbital areas with no swelling, redness, or edema. ENT: Nares patent. No nasal discharge, no septal abnormalities noted. Tympanic membranes are normal and external auditory canals are clear. Oropharynx with no redness, swelling, or masses, exudates, or evidence of obstruction, uvula midline. Mucous membranes moist. Neck: Trachea midline, no thyromegaly or masses palpated, and no cervical lymphadenopathy. Supple, full range of motion without nuchal rigidity, or vertebral point tenderness. Chest/axilla: Normal chest wall appearance and motion. Nontender with no deformity. No lesions are appreciated. Cardiovascular: Regular rate and rhythm with a normal S1 and S2. No gallops, murmurs, or rubs. Normal PMI, no JVD. No pulse deficits. Respiratory: Lungs have equal breath sounds bilaterally, clear to auscultation and percussion. No rales, rhonchi or wheezes noted. No increased work of breathing, no retractions or nasal flaring. Abdomen/GI: Soft, with normal bowel sounds. No distension or tympany. No guarding or rebound. No evidence of tenderness throughout. Back: No spinal tenderness. No costovertebral tenderness. Skin: Warm, dry with normal turgor. Normal color with no rashes, no lesions, and no evidence of cellulitis. MS/ Extremity: Pulses equal, no cyanosis. Neurovascular intact. Full, normal range of motion. Neuro: Awake and alert, GCS 15, oriented to person, place, time, and situation. Cranial nerves II-XII grossly intact. Motor strength 5/5 in all extremities. Sensory grossly intact. Psych: Awake, alert, with orientation to person, place and time. Behavior, mood, and affect are within normal limits 06:22 ECG was reviewed by the Attending Physician. EKG at 0 355 normal sinus rhythm rate 75 Vital Signs: 01:34 BP 163 / 73; Pulse 81; Resp 16; Temp 98; Pulse Ox 98% ; Pain 0/10; cp4 02:51 BP 143 / 69; Pulse 85; Resp 18; Pulse Ox 98% ; cp4 04:38 BP 154 / 74; Pulse 85; Resp 18; Pulse Ox 97% ; cp4 05:40 BP 145 / 69; Pulse 76; Resp 18; Pulse Ox 97% ; cp4 01:34 Pain Scale: Adult cp4 Apolinar Coma Score: 06:22 Eye Response: spontaneous(4). Motor Response: obeys commands(6). Verbal Response: sp4 oriented(5). Total: 15. MDM: 03:14 Medical Screening Exam initiated sp4 03:55 Differential Diagnosis altered mental status, sepsis, flu, Electrolyte imbalance.. Data sp4 reviewed: vital signs, nurses notes, EMS record, lab test result(s), EKG, radiologic studies, CT scan. 07/02 01:35 Order name: CBC with Diff; Complete Time: 03:03 ha1 07/02 01:35 Order name: CMP; Complete Time: 03:03 ha1 07/02 01:35 Order name: Lipase; Complete Time: 03:03 ha1 07/02 03:05 Order name: Troponin High Sensitivity; Complete Time: 04:32 sp4 07/02 03:05 Order name: BNP; Complete Time: 04:32 sp4 07/02 03:05 Order name: Type And Screen; Complete Time: 06:04 sp4 07/02 07:30 Order name: Thyroid Stimulating Hormone EDMS 07/02 07:30 Order name: Urinalysis w/ reflexes EDMS 07/02 07:30 Order name: CBC with Automated Diff EDMS 07/02 07:30 Order name: CBC with Automated Diff EDMS 07/02 07:30 Order name: CBC with Automated Diff EDMS 07/02 07:30 Order name: CBC with Automated Diff EDMS 07/02 07:30 Order name: Comprehensive Metabolic Panel EDMS 07/02 07:30 Order name: Comprehensive Metabolic Panel EDMS 07/02 07:30 Order name: Comprehensive Metabolic Panel EDMS 07/02 07:30 Order name: Comprehensive Metabolic Panel EDMS 07/02 07:30 Order name: Lipid Profile EDMS 07/02 07:30 Order name: Lipid Profile EDMS 07/02 07:30 Order name: Magnesium EDMS 07/02 07:30 Order name: Magnesium EDMS 07/02 07:30 Order name: Magnesium EDMS 07/02 07:30 Order name: Magnesium EDMS 07/02 07:34 Order name: Basic Metabolic Panel EDMS 07/02 07:34 Order name: CBC with Automated Diff EDMS 07/02 07:34 Order name: Basic Metabolic Panel EDMS 07/02 03:05 Order name: CT Chest, Abdomen, Pelvis - W/Contrast; Complete Time: 06:20 sp4 07/02 03:05 Order name: EKG; Complete Time: 03:05 sp4 07/02 07:30 Order name: Patient Safety Orders EDMS 07/02 01:35 Order name: IV Saline Lock; Complete Time: 01:46 ha1 07/02 01:35 Order name: Labs collected and sent; Complete Time: 01:46 ha1 07/02 03:05 Order name: EKG - Nurse/Tech; Complete Time: 04:06 sp4 EC:55 Rate is 75 beats/min. Rhythm is regular, Normal Sinus Rhythm. QRS [place] is Normal. [place] sp4 interval is normal. QRS interval is normal. QT interval is normal. No Q waves. T waves are Normal. No ST changes noted. Clinical impression: No evidence of ischemia. Interpreted by me. Reviewed by me. Administered Medications: 03:16 Drug: Potassium Chloride PO Liquid 40 mEq PO once Route: PO; cp4 05:56 Follow up: Response: No adverse reaction cp4 03:38 Drug: Potassium Chloride IV 20 mEq IV at calculated rate once; administer over 1-2 cp4 hours Route: IV; Rate: calculated rate; Site: right forearm; 05:56 Follow up: Response: No adverse reaction; IV Status: Completed infusion cp4 Disposition Summary: 07/02/24 06:22 Hospitalization Ordered Notes: Hospitalization Status: Inpatient Admission sp4 Provider: [facility] sp4 Location: Telemetry/[facility] (Inpatient) sp4 Condition: Stable sp4 Problem: new sp4 Symptoms: have improved sp4 Bed/Room Type: Standard sp4 Room Assignment: [facility](07/02/24 08:15) Diagnosis - Hypokalemia sp4 - Acute generalized weakness, acute hypokalemia, acute renal insufficiency, decreased sp4 hemoglobin Forms: - Medication Reconciliation Form sp4 - SBAR form sp4 - Leadership Thank You Letter sp4 Signatures: Dispatcher [employer] EDMS Alvaro Nielsen FNP-C [employer]LECT[employer]-Cla1 Rossy Luu Heidy, HUSSAIN RN ha1 Salvador James MD MD sp4 Jennifer Fu 4 Corrections: (The following items were deleted from the chart) 01:36 01:35 CBC+H.LAB.BRZ ordered. EDMS EDMS 01:36 01:35 COMPREHENSIVE METABOLIC PANEL+C.LAB.BRZ ordered. EDMS EDMS 01:36 01:35 LIPASE+C.LAB.BRZ ordered. EDMS EDMS 08:15 06:22 sp4 eb
--- NOTE | 2024-07-02 06:23 | ER ---
Nurse's Notes [facility] Name: Twyla Gray Age: 89 yrs Sex: Female : 1935 Arrival Date: 07/02/2024 Time: 01:18 Bed 19 Private MD: Diagnosis: Hypokalemia;Acute generalized weakness, acute hypokalemia, acute renal insufficiency, decreased hemoglobin Presentation: 07/02 01:34 Chief complaint: EMS states: sent from [facility] for a potassium level of 2.7. cp4 Coronavirus screen: Client denies travel out of the [place] in the last 14 days. At this time, the client does not indicate any symptoms associated with coronavirus-19. Ebola Screen: Patient negative for fever greater than or equal to 101.5 degrees Fahrenheit, and additional compatible Ebola Virus Disease symptoms Patient denies exposure to infectious person. Patient denies travel to an Ebola-affected area in the 21 days before illness onset. No symptoms or risks identified at this time. Initial Sepsis Screen: Does the patient meet any 2 criteria? No. Patient's initial sepsis screen is negative. Does the patient have a suspected source of infection? No. Patient's initial sepsis screen is negative. Risk Assessment: Do you want to hurt yourself or someone else? Patient reports no desire to harm self or others. Onset of symptoms was July 01, 2024. 01:34 Method Of Arrival: EMS: [facility] cp4 01:34 Acuity: ASHLYN 3 cp4 Triage Assessment: 01:35 General: Appears in no apparent distress. comfortable, Behavior is calm, cooperative, cp4 appropriate for age. Pain: Denies pain. EENT: No signs and/or symptoms were reported regarding the EENT system. Neuro: Level of Consciousness is awake, alert, obeys commands, Oriented to person, place, time, situation. Cardiovascular: Patient's skin is warm and dry. Respiratory: Airway is patent Respiratory effort is even, unlabored. GI: No signs and/or symptoms were reported involving the gastrointestinal system. : No signs and/or symptoms were reported regarding the genitourinary system. Derm: No signs and/or symptoms reported regarding the dermatologic system. Musculoskeletal: No signs and/or symptoms reported regarding the musculoskeletal system. Historical: - Allergies: 01:35 Sulfa (Sulfonamide Antibiotics); cp4 - PMHx: 01:35 breast cancer; Hypertension; cp4 - PSHx: 01:35 Cholecystectomy; hysterectomy; Left Mastectomy; cp4 - Immunization history:: Adult Immunizations up to date. - Infectious Disease History:: Denies. - Social history:: Smoking status: Patient denies any tobacco usage or history of. - Family history:: not pertinent. Screenin:37 [facility] ED Fall Risk Assessment (Adult) History of falling in the last 3 months, cp4 including since admission No falls in past 3 months (0 pts) Confusion or Disorientation No (0 pts) Intoxicated or Sedated No (0 pts) Impaired Gait No (0 pts) Mobility Assist Device Used No (0 pt) Altered Elimination No (0 pt) Score/Fall Risk Level 0 - 2 = Low Risk Oriented to surroundings, Maintained a safe environment, Assessed \T\ reinforced patient's understanding of fall precautions, Hourly rounding (assess needs \T\ fall precautionary measures) done. Abuse screen: Denies threats or abuse. Nutritional screening: No deficits noted. Tuberculosis screening: No symptoms or risk factors identified. Assessment: 01:37 Reassessment: No changes from previously documented assessment. cp4 02:30 Reassessment: Patient appears in no apparent distress at this time. Patient and/or cp4 family updated on plan of care and expected duration. Pain level reassessed. Patient is alert, oriented x 3, equal unlabored respirations, skin warm/dry/pink. 03:30 Reassessment: Patient appears in no apparent distress at this time. Patient and/or cp4 family updated on plan of care and expected duration. Pain level reassessed. Patient is alert, oriented x 3, equal unlabored respirations, skin warm/dry/pink. 04:30 Reassessment: Patient appears in no apparent distress at this time. Patient and/or cp4 family updated on plan of care and expected duration. Pain level reassessed. Patient is alert, oriented x 3, equal unlabored respirations, skin warm/dry/pink. 05:41 Reassessment: Patient appears in no apparent distress at this time. Patient and/or cp4 family updated on plan of care and expected duration. Pain level reassessed. Patient is alert, oriented x 3, equal unlabored respirations, skin warm/dry/pink. Vital Signs: 01:34 BP 163 / 73; Pulse 81; Resp 16; Temp 98; Pulse Ox 98% ; Pain 0/10; cp4 02:51 BP 143 / 69; Pulse 85; Resp 18; Pulse Ox 98% ; cp4 04:38 BP 154 / 74; Pulse 85; Resp 18; Pulse Ox 97% ; cp4 05:40 BP 145 / 69; Pulse 76; Resp 18; Pulse Ox 97% ; cp4 01:34 Pain Scale: Adult cp4 Apolinar Coma Score: 06:22 Eye Response: spontaneous(4). Motor Response: obeys commands(6). Verbal Response: sp4 oriented(5). Total: 15. ED Course: 01:27 Patient arrived in ED. cp4 01:34 Jennifer Fu is Primary Nurse. cp4 01:35 Triage completed. cp4 01:35 Arm band placed on right wrist. Patient placed in an exam room, on a stretcher. cp4 01:37 Bed in low position. Call light in reach. Side rails up X2. cp4 01:37 No provider procedures requiring assistance completed. Initial lab(s) drawn, by al, cp4 sent to lab. Inserted saline lock: 22 gauge in right forearm, using aseptic technique. Blood collected. Flushed with 10 mL NS. 03:02 Salvador James MD is Attending Physician. sp4 03:42 Type And Screen Sent. vk 04:10 CT Chest, Abdomen, Pelvis - W/Contrast In Process Unspecified. EDMD 06:22 Ct Diallo is Hospitalizing Provider. sp4 Administered Medications: 03:16 Drug: Potassium Chloride PO Liquid 40 mEq PO once Route: PO; cp4 05:56 Follow up: Response: No adverse reaction cp4 03:38 Drug: Potassium Chloride IV 20 mEq IV at calculated rate once; administer over 1-2 cp4 hours Route: IV; Rate: calculated rate; Site: right forearm; 05:56 Follow up: Response: No adverse reaction; IV Status: Completed infusion cp4 Medication: 01:37 VIS not applicable for this client. cp4 Outcome: 06:22 Decision to Hospitalize by Provider. sp4 09:41 Patient left the ED. ph Signatures: Dispatcher [employer] [facility] Maryse Guillen RN RN Salvador James MD MD sp4 Jennifer Fu cp4 Delma [employer]: (The following items were deleted from the chart) 04:38 04:27 BP 122 / 73; Pulse 79bpm; Resp 16bpm; Pulse Ox 96%; cp4 cp4
[2024-07-02] MEDS: PANTOPRAZOLE 40MG TABLET PO SCH (06:30)
--- NOTE | 2024-07-02 07:39 | P.HP ---
Certification for Inpatient Patient admitted to: Observation With expected LOS: <2 Midnights Patient will require the following post-hospital care: None Practitioner: I am a practitioner with admitting privileges, knowledge of patient current condition, hospital course, and medical plan of care. Services: Services provided to patient in accordance with Admission requirements found in Title 42 Section 412.3 of the Code of Federal Regulations Patient History Date of Service: 07/02/24 Reason for admission: Hypokalemia, generalized weakness with fall, mild renal insufficiency History of Present Illness: Ms. Gray is a 89-year-old female with a past medical history of dementia, essential hypertension, hyperlipidemia, and GERD. She resides at [facility] where last p.m. she was noted to have some generalized weakness, sustained a fall without loss of consciousness, and was sent to the emergency department for evaluation. On exam she is alert but confused. She is mildly hypotensive with a systolic in the high 90s. Her potassium was noted to be 2.7 and in the emergency department. She received 20 mill equivalents p.o. and 20 mi ll equivalents IV to replete. She denies pain and complains only of generalized soreness. Her daughter is at bedside and states she is more confused than at baseline. We will gently hydrate her with normal saline with 20 of K at 100 an hour for 6 hours and then reevaluate electrolytes and blood pressure. We will observe her upstairs and reevaluate later today with possible discharge back to [facility] this evening. Allergies Sulfa (Sulfonamide Antibiotics) Allergy (Verified 04/04/17 17:11) Itching/Hives/Rash Home medications list reviewed: Yes Home Medications: ALPRAZolam [Xanax*] 0.5 mg PO DAILY 04/04/17 Aspirin [Aspir-Low] 81 mg PO DAILY 04/04/17 Brimonidine [Alphagan P 0.15%*] 1 drop OPTH TID 04/04/17 Dorzolamide HCl/Timolol Maleat [Dorzolamide-Timolol Eye Drops] 1 drop OPTH BID 04/04/17 Meclizine HCl 25 mg PO PRN PRN 04/04/17 ramipriL [Altace*] 2.5 mg PO DAILY 04/04/17 Montelukast [Singulair] 10 mg PO DAILY 03/16/23 Netarsudil Mesylat/Latanoprost [Rocklatan 0.02%-0.005% Eye Drp] 2.5 ml OP BEDTIME 03/16/23 Pantoprazole Sodium [Protonix] 40 mg PO DAILY 03/16/23 hydroCHLOROthiazide [Hydrochlorothiazide] 25 mg PO PRN PRN 03/16/23 - Past Medical/Surgical History Has patient received pneumonia vaccine in the past: Yes Diabetic: No -: Hypertension -: Gastro esophageal reflux disease -: Hyperlipidemia -: Breast cancer -: Hysterectomy -: Appendectomy -: Cholecystectomy -: Left mastectomy 1987 -: R hip replacement 2016 Psychosocial/ Personal History: Lives at [facility]. History of dementia - Family History Mother -: Diabetes - Social History Smoking Status: Unknown if ever smoked Alcohol use: No CD- Drugs: No Caffeine use: No Place of Residence: [facility] Review of Systems 10-point ROS is otherwise unremarkable General: Weakness, Malaise Integumentary: Bruising (Left dorsal foot) Neurological: As per HPI Physical Examination - Vital Signs Blood Pressure: 96/60 - Physical Exam General: Alert, Confused HEENT: Atraumatic, Normocephalic Neck: Supple Cardiovascular: No edema, Normal pulses, Regular rate/rhythm Capillary refill: <2 Seconds Gastrointestinal: Soft and benign Musculoskeletal: No clubbing, No swelling Integumentary: Other (Ecchymosis to dorsal left foot) Neurological: Normal speech, Normal tone, Normal affect Lymphatics: No axilla or inguinal lymphadenopathy External genitalia: Deferred Rectal: Deferred - Studies Laboratory Data (last 24 hrs) 07/02/24 07/02/24 07/02/24 Unknown 01:38 01:38 WBC 10.90 Hgb 9.4 L Hct 27.9 L Plt Count 202 Sodium Cancelled 141 Potassium Cancelled 2.7 L BUN Cancelled 18 Creatinine Cancelled 1.28 H Glucose Cancelled 129 H Total Bilirubin 0.7 AST 37 ALT 19 Alkaline Phosphatase 83 Lipase 22 Assessment and Plan - Plan Hypokalemia Replete Monitor and trend Generalized weakness/status post fall Safety measures Turn every 2 hours Observe for injury Tylenol as needed pain History of hypertension Hold antihypertensive, patient is currently mildly hypotensive Gentle IVF and reassess History of dementia Reorient frequently Safety measures VTE/GI prophylaxis Discharge Plan: [facility] Plan to discharge in: 24 Hours - Advance Directives Does patient have a Living Will: No Does patient have a Durable POA for Healthcare: No - Code Status/Comfort Care Code Status Assessed: Yes (Full) Critical Care: No
[2024-07-02] MEDS: NS KCL 20MEQ 20 MEQ/1,000 ML BAG IV SCH (08:00)
[2024-07-02 10:39] LABS: Phosphorus 2.6 mg/dL (2.5-4.9)
[2024-07-02 11:02] VITALS: BMI 23.6
[2024-07-02] MEDS: ENOXAPARIN 40 MG/0.4 ML SQ SCH (12:09)
[2024-07-02] MEDS ORDERED: METOPROLOL XL 25 MG TAB PO ONE (15:31)
[2024-07-02 16:06] LABS: Absolute Lymphocytes (CBC) 1.2 K/uL (0.7-4.9); Absolute Monocytes 2.9 K/uL (0.1-1.3); Absolute Neutrophil 5.2 K/uL (1.8-8.0); Basophils % 0.4 % (0-1.3); Eosinophils % 0.1 % (0-4.4); Hemoglobin 8.7 g/dL (12.0-15.0); Lymphocytes % 12.6 % (15.3-44.8); MCH 30.3 pg (27.0-35.0); MCHC 33.3 g/dL (32.0-36.0); MCV 91.2 fL (80-100); MPV 8.5 fL (7.6-11.3); Monocytes % 31.1 % (3.3-12.3); Neutrophils % 55.8 % (41.7-73.7); Platelets 187 thou/uL (152-406); RBC Red Blood Cell Count 2.86 M/uL (3.86-4.86); Red Cell Distribution Width 15.9 % (12.1-15.2)
[2024-07-02 16:09] LABS: Blood Morphology Comment NOT SEEN (NOT SEEN); Platelet Estimate ADEQ; White Blood Cell Scan OK (OK)
[2024-07-02 16:17] LABS: Anion Gap 8.2 mEq/L (5.0-15.0); Potassium 3.2 mEq/L (3.5-5.1)
[2024-07-02] MEDS: METOPROLOL XL 25 MG TAB PO SCH (16:54)
[2024-07-02] MEDS: POTASSIUM 25 MEQ EFFERV TAB PO ONE (20:11)
[2024-07-02 21:04] LABS: Specific Gravity > 1.030 (1.005-1.030); Urine Bacteria None Seen /HPF (<20); Urine Bilirubin NEGATIVE (Negative); Urine Blood Trace (Negative); Urine Clarity Turbid (Clear); Urine Color Light-Yellow (Yellow); Urine Culture Reflex Order NOT NEEDED; Urine Glucose NEGATIVE (Negative); Urine Ketones NEGATIVE (Negative); Urine Microscopic Reflex YN ORDER UMIC; Urine Nitrite NEGATIVE (Negative); Urine Protein 1+ (Negative); Urine Urobilinogen Normal (Normal); Urine WBC <5 /HPF (<5); Urine WBC Clump Rare /HPF (None Seen); Urine Yeast (Budding) Trace /HPF (None Seen); Urine pH 6.5 (5.0-7.0)
[2024-07-03 00:02] VITALS: O2SAT 98
[2024-07-03 06:07] LABS: Absolute Lymphocytes (CBC) 1.5 K/uL (0.7-4.9); Absolute Monocytes 2.2 K/uL (0.1-1.3); Absolute Neutrophil 3.5 K/uL (1.8-8.0); Basophils % 0.2 % (0-1.3); Eosinophils % 0.1 % (0-4.4); Hematocrit 25.1 % (36.0-45.0); Hemoglobin 8.5 g/dL (12.0-15.0); Lymphocytes % 20.3 % (15.3-44.8); MCH 30.9 pg (27.0-35.0); MCHC 33.8 g/dL (32.0-36.0); MCV 91.4 fL (80-100); MPV 8.8 fL (7.6-11.3); Monocytes % 30.3 % (3.3-12.3); Neutrophils % 49.1 % (41.7-73.7); Nucleated Red Blood Cells % 0.2 % (0-0); Platelets 179 thou/uL (152-406); RBC Red Blood Cell Count 2.74 M/uL (3.86-4.86)
[2024-07-03 06:25] LABS: Albumin/Globulin Ratio 0.8 (1.1-1.8); Anion Gap 7.4 mEq/L (5.0-15.0); Bilirubin Total 0.4 mg/dL (0.2-1.0); Globulin 3.6 g/dL (2.3-3.5); Magnesium 2.1 mg/dL (1.6-2.4); Potassium 3.4 mEq/L (3.5-5.1); Protein, Total 6.6 g/dL (6.4-8.2)
[2024-07-03] MEDS: ACETAMINOPHEN 325 MG TABLET PO PRN (07:51)
[2024-07-03] MEDS: POTASSIUM CL SA 10 MEQ TAB PO ONE (09:02)
[2024-07-03] MEDS: HYDROCORTISONE SUC 100 MG INJ IV ONE (12:57)
--- NOTE | 2024-07-03 14:04 | RAD REPORT ---
Exam:Foot Right 3 View CLINICAL HISTORY: Right foot pain FINDINGS: No fracture or dislocation seen Moderate calcaneal spur. Bones are osteoporotic. Hallux valgus deformity present. Moderate lateral subluxation first proximal phalanx. There is marked flexion involving the second through fifth MTP joints. This results in limited evalua tion of the proximal phalanges.
[2024-07-03] MEDS: VENLAFAXINE HCL XR 75 MG CAP PO SCH (18:27)
[2024-07-04 06:22] LABS: Absolute Lymphocytes (CBC) 1.5 K/uL (0.7-4.9); Absolute Neutrophil 3.8 K/uL (1.8-8.0); Basophils % 0.3 % (0-1.3); Eosinophils % 0.2 % (0-4.4); Hematocrit 26.1 % (36.0-45.0); Hemoglobin 8.7 g/dL (12.0-15.0); Lymphocytes % 20.8 % (15.3-44.8); MCH 30.5 pg (27.0-35.0); MCHC 33.4 g/dL (32.0-36.0); MCV 91.4 fL (80-100); MPV 8.8 fL (7.6-11.3); Monocytes % 26.5 % (3.3-12.3); Neutrophils % 52.2 % (41.7-73.7); Nucleated Red Blood Cells % 0.1 % (0-0); Platelets 188 thou/uL (152-406); RBC Red Blood Cell Count 2.86 M/uL (3.86-4.86); Red Cell Distribution Width 15.6 % (12.1-15.2)
[2024-07-04 07:03] LABS: Albumin 3.1 g/dL (3.4-5.0); Albumin/Globulin Ratio 0.9 (1.1-1.8); Anion Gap 8.6 mEq/L (5.0-15.0); Bilirubin Total 0.4 mg/dL (0.2-1.0); Globulin 3.6 g/dL (2.3-3.5); Potassium 3.6 mEq/L (3.5-5.1); Protein, Total 6.7 g/dL (6.4-8.2)
[2024-07-04 08:29] LABS: Atypical Lymphocytes 3 %; Blood Morphology Comment NOT SEEN (NOT SEEN); Differential Total Cells Count 100; Lymphocytes 20 % (15-42); Monocytes 15 % (0-10); Platelet Estimate ADEQ; Segmented Neutrophils 60 % (40-80)
[2024-07-04] MEDS: ENOXAPARIN 30 MG/0.3 ML SQ SCH (08:57)
[2024-07-04] MEDS ORDERED: ENOXAPARIN 30 MG/0.3 ML SQ SCH (09:00)
[2024-07-04 10:42] VITALS: TEMP 98.3
[2024-07-04 14:25] VITALS: BP 132/71
[2024-07-04] MEDS ORDERED: COLCHICINE 0.6 MG TAB PO SCH (21:00)
[2024-07-05] MEDS ORDERED: predniSONE 20 MG TAB PO SCH (09:00)
--- NOTE | 2024-07-10 11:15 | EKG ---
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
== END 2024-07-04 14:59 | DRG 641 ==
LOC: ER 01:18 → ERHOLD 07:21 → 4TH 08:33 → OBSVTOIN 07-03 17:43
PROVIDERS: ADMIT Internal Medicine; ATTEND Hospitalist
DX: E87.6 Hypokalemia (principal); E78.5 Hyperlipidemia, unspecified; I95.9 Hypotension, unspecified; N28.9 Disorder of kidney and ureter, unspecified; K21.9 Gastro-esophageal reflux disease without esophagitis; F03.90 Unspecified dementia, unspecified severity, without behavioral disturbance, psychotic disturbance, mood disturbance, and anxiety; Z88.2 Allergy status to sulfonamides; Z85.3 Personal history of malignant neoplasm of breast; Z79.82 Long term (current) use of aspirin; Z90.12 Acquired absence of left breast and nipple; Z90.49 Acquired absence of other specified parts of digestive tract; Z96.641 Presence of right artificial hip joint; Z79.899 Other long term (current) drug therapy; Z90.710 Acquired absence of both cervix and uterus; W18.30XA Fall on same level, unspecified, initial encounter; Y93.9 Activity, unspecified; Y92.129 Unspecified place in nursing home as the place of occurrence of the external cause; Y99.9 Unspecified external cause status
CPT/HCPCS: 36415; 71260; 74177; 80048; 80053; 80061; 81001; 83690; 83735; 83880; 84100; 84443; 84484; 85025; 86850; 86900; 86901; 93005; 96365; 96366; 97116; 97161; 97530; 99284; G0378; J1650; J1720; J3480; J7040; Q9967